=== PATIENT | female | born 1965 | race Caucasian/White ===

== ENCOUNTER 2016-11-02 03:48 | Emergency (ER) | payer OTHER ==
[~2016-11-02] VITALS: Ht 167.6 cm; Wt 86.2 kg
[~2016-11-02 03:48] MED LIST: EFFEXOR75 MG PO; IBUPROFEN800 MG PO; KEFLEX500 MG PO; MIRAPEX PO; ULTRAM50 MG PO; VICODIN 500 MG-1 TAB PO; VOLTAREN50 MG PO
[2016-11-02] MEDS ORDERED: EFFEXOR XR75 M1 PO (04:03)
[2016-11-02] MEDS ORDERED: ZOLPIDEM10 MG PO (04:04)
[2016-11-02] MEDS ORDERED: ROPINIROLE HYDRO2 M1 PO (04:04)
[2016-11-02 04:05] LABS: BASO # 0.1 10*3/uL (0.0-0.1); BASO % 0.5 % (0.0-1.0); EOS # 0.1 10*3/uL (0.0-0.4); EOS % 0.5 % (1.0-4.0); HEMATOCRIT 35.7 % (37.0-47.0); HEMOGLOBIN 11.3 g/dl (12.0-16.0); LYMPH # 3.5 10*3/uL (1.3-4.4); MEAN CELL VOLUME 84.8 fl (81.0-99.0); MEAN CORPUSCULAR HGB 26.8 pg (27.0-31.0); MEAN CORPUSCULAR HGB CONC 31.7 g/dl (33.0-37.0); MEAN PLATELET VOLUME 9.5 fl (9.6-12.3); MONO # 0.7 10*3/uL (0.1-1.0); MONO % 7.4 % (3.0-9.0); NEUT # 5.4 10*3/uL (2.3-7.9); NEUT % 55.3 % (47.0-73.0); PLATELET COUNT AUTOMATED 363 10*3/uL (130-400); RED BLOOD COUNT 4.21 10*6/uL (4.10-5.10); RED CELL DISTRI WIDTH 15.8 % (0-14.5); WHITE BLOOD COUNT 9.7 10*3/uL (4.8-10.8)
[2016-11-02] MEDS ORDERED: VITAMIN D22000 UNIT PO (04:05)
[2016-11-02] MEDS ORDERED: LAMISIL250 MG PO (04:05)
[2016-11-02 04:16] LABS: BILIRUBIN NEGATIVE (NEGATIVE); BLOOD 1+ (NEGATIVE); CLARITY CLEAR (CLEAR); COLOR YELLOW (YELLOW); GLUCOSE NEGATIVE (NEGATIVE); KETONE NEGATIVE (NEGATIVE); LEUKO ESTERASE NEGATIVE (NEGATIVE); NITRITE NEGATIVE (NEGATIVE); PROTEIN NEGATIVE (NEGATIVE); SPECIFIC GRAVITY <= 1.005 (1.005-1.030); UROBILINOGEN 0.2 E.U./dl (0.2-1.0)
[2016-11-02 04:25] LABS: BACTERIA TRACE; RBC 0-2 rbc/hpf (0-2); URINE AMPHETAMINES < 1000 (1000ng/ml); URINE BARBITURATES < 200 (200ng/ml); URINE COCAINE < 300 (300ng/ml); URINE REFLEX COMMENT YES (NO); WBC 0-2 wbc/hpf (0-5)
[2016-11-02 04:31] LABS: ALBUMIN 3.5 gm/dl (3.1-4.5); ALKALINE PHOSPHATASE 71 U/L (45-117); BILIRUBIN, TOTAL 0.5 mg/dl (0.2-1.0); BUN 9 mg/dl (7-24); CARBON DIOXIDE 24 mmol/L (21-32); CHLORIDE 105 mmol/L (98-107); EST GLOM FILT AFRICAN AMERICAN > 60 ml/min; GLUCOSE 136 mg/dL (65-99); POTASSIUM 3.7 mmol/L (3.5-5.1); SGOT/AST 19 IU/L (3-35); SGPT/ALT 20 U/L (12-78); SODIUM 142 mmol/L (136-145); TOTAL PROTEIN 7.2 gm/dL (6.4-8.2)
== END 2016-11-02 09:44 | disposition home or self-care (01) ==
LOC: ED 03:48
PROVIDERS: Emergency Medicine
DX: T42.6X1A Poisoning by other antiepileptic and sedative-hypnotic drugs, accidental (unintentional), initial encounter (principal); T43.211A Poisoning by selective serotonin and norepinephrine reuptake inhibitors, accidental (unintentional), initial encounter; Z88.1 Allergy status to other antibiotic agents; Z79.899 Other long term (current) drug therapy; Y92.9 Unspecified place or not applicable

== ENCOUNTER → 2016-11-07 | Outpatient (CLI) | payer OTHER ==
[~2016-11-07] MED LIST changes: +EFFEXOR XR75 M1 PO; +LAMISIL250 MG PO; +ROPINIROLE HYDRO2 M1 PO; +VITAMIN D22000 UNIT PO; +ZOLPIDEM10 MG PO
[2016-11-07 11:31] LABS: HEMATOCRIT 37.1 % (37.0-47.0); HEMOGLOBIN 11.9 g/dl (12.0-16.0); MEAN CELL VOLUME 85.7 fl (81.0-99.0); MEAN CORPUSCULAR HGB 27.5 pg (27.0-31.0); MEAN CORPUSCULAR HGB CONC 32.1 g/dl (33.0-37.0); MEAN PLATELET VOLUME 9.2 fl (9.6-12.3); RED BLOOD COUNT 4.33 10*6/uL (4.10-5.10); RED CELL DISTRI WIDTH 15.9 % (0-14.5); WHITE BLOOD COUNT 4.8 10*3/uL (4.8-10.8)
[2016-11-07 11:47] LABS: HEMOGLOBIN A1c 5.9 % (4.8-5.6)
[2016-11-07 12:02] LABS: ALBUMIN 3.6 gm/dl (3.1-4.5); ALKALINE PHOSPHATASE 66 U/L (45-117); BILIRUBIN, TOTAL 0.8 mg/dl (0.2-1.0); BUN 12 mg/dl (7-24); CARBON DIOXIDE 28 mmol/L (21-32); CHLORIDE 105 mmol/L (98-107); CHOLESTEROL 176 mg/dL (<200); EST GLOM FILT AFRICAN AMERICAN > 60 ml/min; GLUCOSE 100 mg/dL (65-99); HDL CHOLESTEROL 62 mg/dl (40-60); LDL CHOLESTEROL 100 mg/dL (9-159); POTASSIUM 4.3 mmol/L (3.5-5.1); SGOT/AST 17 IU/L (3-35); SGPT/ALT 16 U/L (12-78); SODIUM 140 mmol/L (136-145); TOTAL PROTEIN 7.1 gm/dL (6.4-8.2); TRIGLYCERIDES 68 mg/dl (<150); VLDL CHOLESTEROL 14 mg/dL (6-40)
== END | disposition home or self-care (01) ==
LOC: LAB 11:07
PROVIDERS: Family Medicine
DX: E55.9 Vitamin D deficiency, unspecified (principal); Z79.899 Other long term (current) drug therapy

== ENCOUNTER 2017-02-18 15:12 | Emergency (ER) | payer OTHER ==
[~2017-02-18] VITALS: Ht 172.7 cm; Wt 90.7 kg
== END 2017-02-18 21:40 | disposition short-term general hospital (02) ==
LOC: ED 15:12
DX: S93.334A Other dislocation of right foot, initial encounter (principal); Z88.1 Allergy status to other antibiotic agents; Z79.899 Other long term (current) drug therapy; W01.0XXA Fall on same level from slipping, tripping and stumbling without subsequent striking against object, initial encounter; Y93.89 Activity, other specified; Y92.89 Other specified places as the place of occurrence of the external cause; Y99.8 Other external cause status

== ENCOUNTER 2017-10-27 15:33 | Emergency (ER) | payer OTHER ==
[~2017-10-27] VITALS: Ht 172.7 cm; Wt 90.7 kg
[2017-10-27] MEDS ORDERED: CLINDAMYCIN HC300 MG PO (16:59)
== END 2017-10-27 17:13 | disposition home or self-care (01) ==
LOC: ED 15:33
DX: S51.811A Laceration without foreign body of right forearm, initial encounter (principal); Z88.1 Allergy status to other antibiotic agents; Z79.899 Other long term (current) drug therapy; W18.02XA Striking against glass with subsequent fall, initial encounter; Y93.89 Activity, other specified; Y92.828 Other wilderness area as the place of occurrence of the external cause; Y99.8 Other external cause status

== ENCOUNTER → 2019-01-06 | Outpatient (CLI) | payer OTHER ==
[~2019-01-06] MED LIST changes: +CLINDAMYCIN HC300 MG PO
== END | disposition home or self-care (01) ==
LOC: CT 15:00
DX: S92.901K Unspecified fracture of right foot, subsequent encounter for fracture with nonunion (principal); M19.071 Primary osteoarthritis, right ankle and foot; M24.674 Ankylosis, right foot; X58.XXXD Exposure to other specified factors, subsequent encounter

== ENCOUNTER → 2019-06-03 | Day surgery (SDC) | payer OTHER ==
[2019-06-02 09:26] VITALS: BP 113/98
[~2019-06-03] VITALS: Ht 172.7 cm; Wt 90.7 kg
[~2019-06-03] MED LIST changes: +DOXYCYCLINE100 M3 PO; +IBU800 M1 PO; +PRAMIPEXOLE DI0.5 MG PO; +XARELTO10 MG PO
[2019-06-03 08:15] VITALS: BP 117/43
[2019-06-03 09:29] VITALS: BP 118/57
[2019-06-03 09:45] VITALS: BP 116/57
[2019-06-03 09:57] VITALS: BP 112/57
[2019-06-03 10:30] VITALS: BP 119/60
[2019-06-04 15:09] LABS: ACID FAST SPEC PROCESSING Tissue Grinding (.)
== END | disposition home or self-care (01) ==
LOC: SDC 06-01 14:00
PROVIDERS: Podiatrist
DX: T84.84XA Pain due to internal orthopedic prosthetic devices, implants and grafts, initial encounter (principal); G25.81 Restless legs syndrome; F32.9 Major depressive disorder, single episode, unspecified; M51.36 Other intervertebral disc degeneration, lumbar region; L43.9 Lichen planus, unspecified; E66.9 Obesity, unspecified; Z68.30 Body mass index [BMI] 30.0-30.9, adult; Z87.891 Personal history of nicotine dependence; Y92.89 Other specified places as the place of occurrence of the external cause; Y83.8 Other surgical procedures as the cause of abnormal reaction of the patient, or of later complication, without mention of misadventure at the time of the procedure

== ENCOUNTER → 2019-06-29 | Outpatient (CLI) | payer OTHER | END | disposition home or self-care (01) | LOC: MAMMO 06-24 11:00 | DX: Z12.31 Encounter for screening mammogram for malignant neoplasm of breast (principal) ==

== ENCOUNTER → 2019-07-23 | Outpatient (CLI) | payer OTHER | END | disposition home or self-care (01) | LOC: MAMMO 07-22 13:30 | DX: R92.1 Mammographic calcification found on diagnostic imaging of breast (principal) ==

== ENCOUNTER 2020-10-21 21:21 | Emergency (ER) | payer OTHER ==
[~2020-10-21] VITALS: Ht 172.7 cm; Wt 90.7 kg
[2020-10-21] MEDS ORDERED: PREDNISONE10 MG PO (22:02)
[2020-10-21] MEDS ORDERED: CEPHALEXIN500 M1 PO (22:02)
== END 2020-10-21 22:18 | disposition home or self-care (01) ==
LOC: ED 21:21
DX: L23.9 Allergic contact dermatitis, unspecified cause (principal); Z88.1 Allergy status to other antibiotic agents; Z79.2 Long term (current) use of antibiotics; Z79.899 Other long term (current) drug therapy; Z96.642 Presence of left artificial hip joint; Z98.890 Other specified postprocedural states

== ENCOUNTER 2021-03-12 13:40 | Emergency (ER) | payer OTHER ==
[~2021-03-12] VITALS: Ht 172.7 cm; Wt 96.2 kg
[~2021-03-12 13:40] MED LIST changes: +CEPHALEXIN500 M1 PO; +PREDNISONE10 MG PO
[2021-03-12] MEDS ORDERED: PREDNISONE10 MG PO ×2 (14:20)
[2021-03-12] MEDS ORDERED: CEPHALEXIN500 M1 PO ×2 (14:20)
[2021-03-12] MEDS ORDERED: HYDROXYZINE HCL25 MG PO ×2 (14:20)
[2021-03-22] MEDS ORDERED: TRAMADOL HCL50 MG PO (12:28)
[2021-03-22] MEDS ORDERED: XARELTO10 MG PO (12:28)
[2021-03-22] MEDS ORDERED: VIBRA-TAB100 MG PO (12:28)
== END 2021-03-12 14:29 | disposition home or self-care (01) ==
LOC: ED 13:40
DX: R21 Rash and other nonspecific skin eruption (principal); Z88.1 Allergy status to other antibiotic agents; Z79.899 Other long term (current) drug therapy

== ENCOUNTER → 2021-03-22 | Day surgery (SDC) | payer OTHER ==
[2021-03-17 13:54] VITALS: BP 133/70
[2021-03-17 14:35] LABS: BASO # 0.1 10*3/uL (0.0-0.1); BASO % 0.9 % (0.0-1.0); EOS % 0.2 % (1.0-4.0); HEMATOCRIT 39.6 % (37.0-47.0); LYMPH # 1.4 10*3/uL (1.3-4.4); LYMPH % 24.7 % (27.0-41.0); MEAN CELL VOLUME 92.7 fl (81.0-99.0); MEAN CORPUSCULAR HGB 28.6 pg (27.0-31.0); MEAN CORPUSCULAR HGB CONC 30.8 g/dl (33.0-37.0); MEAN PLATELET VOLUME 8.8 fl (9.6-12.3); MONO # 0.1 10*3/uL (0.1-1.0); MONO % 1.4 % (3.0-9.0); NEUT # 4.2 10*3/uL (2.3-7.9); NEUT % 71.9 % (47.0-73.0); PLATELET COUNT AUTOMATED 422 10*3/uL (130-400); RED BLOOD COUNT 4.27 10*6/uL (4.10-5.10); RED CELL DISTRI WIDTH 14.5 % (0-14.5); WHITE BLOOD COUNT 5.8 10*3/uL (4.8-10.8)
[2021-03-17 14:48] LABS: BUN 17 mg/dl (7-24); CHLORIDE 108 mmol/L (98-107); CREATININE 1.02 mg/dL (0.55-1.02); POTASSIUM 4.1 mmol/L (3.5-5.1); SODIUM 143 mmol/L (136-145)
[2021-03-22] VITALS (8 sets, daily range): BP systolic 120–180; BP diastolic 52–79
[~2021-03-22] VITALS: Ht 172.7 cm; Wt 97.5 kg
[~2021-03-22] MED LIST changes: +HYDROXYZINE HCL25 MG PO; +TRAMADOL HCL50 MG PO; +VIBRA-TAB100 MG PO
== END | disposition home or self-care (01) ==
LOC: SDC 03-17 14:00
PROVIDERS: ATTEND Podiatrist
DX: M21.6X1 Other acquired deformities of right foot (principal); M79.671 Pain in right foot; M19.071 Primary osteoarthritis, right ankle and foot; F32.9 Major depressive disorder, single episode, unspecified; F41.9 Anxiety disorder, unspecified; G47.00 Insomnia, unspecified; Z79.899 Other long term (current) drug therapy; Z20.822 Contact with and (suspected) exposure to COVID-19

== ENCOUNTER 2022-09-03 17:33 | Emergency (ER) | payer OTHER ==
[~2022-09-03] VITALS: Ht 172.7 cm; Wt 95.3 kg
[2022-09-03 18:26] LABS: BASO # 0.1 10*3/uL (0.0-0.1); BASO % 0.4 % (0.0-1.0); EOS % 0.2 % (1.0-4.0); HEMATOCRIT 41.3 % (37.0-47.0); LYMPH # 1.7 10*3/uL (1.3-4.4); LYMPH % 14.2 % (27.0-41.0); MEAN CELL VOLUME 90.6 fl (81.0-99.0); MEAN CORPUSCULAR HGB 28.7 pg (27.0-31.0); MEAN CORPUSCULAR HGB CONC 31.7 g/dl (33.0-37.0); MEAN PLATELET VOLUME 8.9 fl (9.6-12.3); MONO # 0.6 10*3/uL (0.1-1.0); MONO % 4.9 % (3.0-9.0); NEUT # 9.7 10*3/uL (2.3-7.9); NEUT % 79.9 % (47.0-73.0); PLATELET COUNT AUTOMATED 340 10*3/uL (130-400); RED BLOOD COUNT 4.56 10*6/uL (4.10-5.10); RED CELL DISTRI WIDTH 13.3 % (0-14.5); WHITE BLOOD COUNT 12.2 10*3/uL (4.8-10.8)
[2022-09-03 18:43] LABS: POTASSIUM 4.2 mmol/L (3.4-5.1); TOTAL PROTEIN 7.5 gm/dL (6.0-8.0)
[2022-09-03 20:18] LABS: BILIRUBIN Negative (Negative); BLOOD 2+ (Negative); CLARITY Cloudy (Clear); COLOR Yellow (Yellow); GLUCOSE Negative (Negative); KETONE 1+ (Negative); LEUKO ESTERASE 2+ (Negative); NITRITE Negative (Negative); PH 6.5 (4.5-8.0); SPECIFIC GRAVITY 1.025 (1.001-1.030); UROBILINOGEN 0.2 E.U./dl (0.0-1.0)
[2022-09-03 20:34] LABS: BACTERIA 1+; WBC 51-100 wbc/hpf (0-5)
== END 2022-09-03 21:06 | disposition short-term general hospital (02) ==
LOC: ED 17:33
PROVIDERS: Emergency Medicine
DX: N13.2 Hydronephrosis with renal and ureteral calculous obstruction (principal); N13.4 Hydroureter; N18.31 Chronic kidney disease, stage 3a; F32.A Depression, unspecified; F41.9 Anxiety disorder, unspecified; Z88.1 Allergy status to other antibiotic agents; Z98.890 Other specified postprocedural states

== ENCOUNTER → 2022-09-12 | Outpatient (CLI) | payer OTHER ==
[2022-09-12 12:10] LABS: BILIRUBIN Negative (Negative); BLOOD 2+ (Negative); CLARITY Clear (Clear); COLOR Yellow (Yellow); GLUCOSE Negative (Negative); KETONE Negative (Negative); LEUKO ESTERASE 2+ (Negative); NITRITE Negative (Negative); PH 6.5 (4.5-8.0); SPECIFIC GRAVITY 1.015 (1.001-1.030); UROBILINOGEN 0.2 E.U./dl (0.0-1.0)
[2022-09-12 12:31] LABS: MUCOUS 1+; RBC 41-50 rbc/hpf (0-2); WBC 21-30 wbc/hpf (0-5)
== END | disposition home or self-care (01) ==
LOC: LAB 11:43
PROVIDERS: ATTEND Urology
DX: A41.9 Sepsis, unspecified organism (principal); N20.0 Calculus of kidney; N39.0 Urinary tract infection, site not specified

== ENCOUNTER → 2022-09-25 | Outpatient (CLI) | payer OTHER | END | disposition home or self-care (01) | LOC: RAD 13:15 | PROVIDERS: ATTEND Urology | DX: N20.0 Calculus of kidney (principal) ==

== ENCOUNTER → 2022-12-03 | Outpatient (CLI) | payer OTHER | END | disposition home or self-care (01) | LOC: WOUNDCARE 01:18 | PROVIDERS: ATTEND Nurse Practitioner Primary Care | DX: T81.89XA Other complications of procedures, not elsewhere classified, initial encounter (principal); S71.002A Unspecified open wound, left hip, initial encounter; M97.8XXD Periprosthetic fracture around other internal prosthetic joint, subsequent encounter; M16.12 Unilateral primary osteoarthritis, left hip; Z96.649 Presence of unspecified artificial hip joint; X58.XXXA Exposure to other specified factors, initial encounter; Y93.89 Activity, other specified; Y92.89 Other specified places as the place of occurrence of the external cause; Y99.8 Other external cause status; X58.XXXD Exposure to other specified factors, subsequent encounter; Y92.238 Other place in hospital as the place of occurrence of the external cause; Y83.8 Other surgical procedures as the cause of abnormal reaction of the patient, or of later complication, without mention of misadventure at the time of the procedure ==

== ENCOUNTER → 2022-12-10 | Outpatient (CLI) | payer OTHER | END | disposition home or self-care (01) | LOC: WOUNDCARE 01:58 | PROVIDERS: ATTEND Nurse Practitioner Family | DX: T81.89XD Other complications of procedures, not elsewhere classified, subsequent encounter (principal); L98.492 Non-pressure chronic ulcer of skin of other sites with fat layer exposed; S71.002D Unspecified open wound, left hip, subsequent encounter; M16.12 Unilateral primary osteoarthritis, left hip; Z96.642 Presence of left artificial hip joint; X58.XXXD Exposure to other specified factors, subsequent encounter; Y83.8 Other surgical procedures as the cause of abnormal reaction of the patient, or of later complication, without mention of misadventure at the time of the procedure ==

== ENCOUNTER → 2022-12-17 | Outpatient (CLI) | payer OTHER | END | disposition home or self-care (01) | LOC: WOUNDCARE 02:04 | PROVIDERS: ATTEND Nurse Practitioner Primary Care | DX: T81.89XD Other complications of procedures, not elsewhere classified, subsequent encounter (principal); S71.002D Unspecified open wound, left hip, subsequent encounter; L98.492 Non-pressure chronic ulcer of skin of other sites with fat layer exposed; M97.8XXD Periprosthetic fracture around other internal prosthetic joint, subsequent encounter; Z96.649 Presence of unspecified artificial hip joint; M16.12 Unilateral primary osteoarthritis, left hip; X58.XXXD Exposure to other specified factors, subsequent encounter; Y83.8 Other surgical procedures as the cause of abnormal reaction of the patient, or of later complication, without mention of misadventure at the time of the procedure ==

== ENCOUNTER → 2023-05-16 | Outpatient (CLI) | payer OTHER ==
[2023-05-16 12:32] LABS: URINE AMPHETAMINES Negative (1000ng/ml); URINE BARBITURATES Negative (200ng/ml); URINE BENZODIAZEPINES Negative (200ng/ml); URINE CANNABINOIDS (THC) Negative (50ng/ml); URINE COCAINE Negative (300ng/ml); URINE METHADONE Negative (300ng/ml); URINE OPIATES Negative (300ng/ml); URINE PHENCYCLIDINE Negative (25ng/ml)
== END | disposition home or self-care (01) ==
LOC: LAB 11:54
PROVIDERS: ATTEND Nurse Practitioner Family
DX: Z51.81 Encounter for therapeutic drug level monitoring (principal); F33.1 Major depressive disorder, recurrent, moderate

== ENCOUNTER → 2023-09-13 | Outpatient (CLI) | payer OTHER ==
[2023-09-13 08:38] LABS: BASO % 0.7 % (0.0-1.0); EOS # 0.2 10*3/uL (0.0-0.4); EOS % 3.7 % (1.0-4.0); HEMATOCRIT 39.9 % (37.0-47.0); LYMPH # 2.7 10*3/uL (1.3-4.4); LYMPH % 50.2 % (27.0-41.0); MEAN CELL VOLUME 92.1 fl (81.0-99.0); MEAN CORPUSCULAR HGB 28.6 pg (27.0-31.0); MEAN CORPUSCULAR HGB CONC 31.1 g/dl (33.0-37.0); MEAN PLATELET VOLUME 8.4 fl (9.6-12.3); MONO # 0.4 10*3/uL (0.1-1.0); MONO % 6.9 % (3.0-9.0); NEUT # 2.1 10*3/uL (2.3-7.9); NEUT % 38.1 % (47.0-73.0); PLATELET COUNT AUTOMATED 323 10*3/uL (130-400); RED BLOOD COUNT 4.33 10*6/uL (4.10-5.10); RED CELL DISTRI WIDTH 14.3 % (0-14.5); WHITE BLOOD COUNT 5.4 10*3/uL (4.8-10.8)
[2023-09-13 08:39] LABS: BILIRUBIN Negative (Negative); BLOOD Negative (Negative); CLARITY Clear (Clear); COLOR Yellow (Yellow); GLUCOSE Negative (Negative); KETONE Trace (Negative); LEUKO ESTERASE 1+ (Negative); NITRITE Negative (Negative); PH 5.5 (4.5-8.0)
[2023-09-13 08:50] LABS: ALKALINE PHOSPHATASE 80 U/L (46-116); BUN 11 mg/dl (9-23); CHLORIDE 107 mmol/L (98-107); CHOLESTEROL 207 mg/dL (<200); LDL CHOLESTEROL 120 mg/dL (9-159); POTASSIUM 4.2 mmol/L (3.4-5.1); SGPT/ALT 20 U/L (5-49); TRIGLYCERIDES 76 mg/dl (<150)
[2023-09-13 09:19] LABS: VITAMIN D, 25-HYDROXY 32.8 ng/mL (30-100)
[2023-09-13 10:10] LABS: BACTERIA TRACE
[2023-09-14 12:07] LABS: CCP ANTIBODIES IGG/IGA 4 units (0-19)
[2023-09-16 13:06] LABS: ANTI-DSDNA ANTIBODIES 2 IU/mL (0-9); ANTI-RNP ANTIBODIES <0.2 AI (0.0-0.9); ANTICHROMATIN ANTIBODIES <0.2 AI (0.0-0.9); ANTISCLERODERMA-70 AB <0.2 AI (0.0-0.9); SJOGREN ANTI-SS-A <0.2 AI (0.0-0.9); SJOREN AB, ANTI-SS-B <0.2 AI (0.0-0.9)
== END | disposition home or self-care (01) ==
LOC: LAB 08:14
PROVIDERS: ATTEND Nurse Practitioner Family
DX: D50.9 Iron deficiency anemia, unspecified (principal); R21 Rash and other nonspecific skin eruption; F33.1 Major depressive disorder, recurrent, moderate; M19.90 Unspecified osteoarthritis, unspecified site

== ENCOUNTER → 2023-09-19 | Outpatient (CLI) | payer OTHER | END | disposition home or self-care (01) | LOC: WOUNDCARE 01:01 | PROVIDERS: ATTEND Nurse Practitioner Family | DX: R21 Rash and other nonspecific skin eruption (principal); L20.9 Atopic dermatitis, unspecified; L53.9 Erythematous condition, unspecified; L29.9 Pruritus, unspecified; R60.9 Edema, unspecified; R20.8 Other disturbances of skin sensation; I10 Essential (primary) hypertension; G25.81 Restless legs syndrome; M19.90 Unspecified osteoarthritis, unspecified site; F32.A Depression, unspecified; Z96.642 Presence of left artificial hip joint ==

== ENCOUNTER → 2023-09-26 | Outpatient (CLI) | payer OTHER | END | disposition home or self-care (01) | LOC: WOUNDCARE 01:02 | PROVIDERS: ATTEND Nurse Practitioner Family | DX: R21 Rash and other nonspecific skin eruption (principal); I10 Essential (primary) hypertension; L20.9 Atopic dermatitis, unspecified; E55.9 Vitamin D deficiency, unspecified; G25.81 Restless legs syndrome; L53.9 Erythematous condition, unspecified; M16.12 Unilateral primary osteoarthritis, left hip; L29.9 Pruritus, unspecified; R60.9 Edema, unspecified; R20.8 Other disturbances of skin sensation; F32.A Depression, unspecified; Z96.642 Presence of left artificial hip joint; Z79.899 Other long term (current) drug therapy ==

== ENCOUNTER → 2023-10-28 | Outpatient (CLI) | payer OTHER | END | disposition home or self-care (01) | LOC: WOUNDCARE 01:27 | PROVIDERS: ATTEND Nurse Practitioner Family | DX: R21 Rash and other nonspecific skin eruption (principal); I10 Essential (primary) hypertension; L20.9 Atopic dermatitis, unspecified; E55.9 Vitamin D deficiency, unspecified; G25.81 Restless legs syndrome; L53.9 Erythematous condition, unspecified; M16.12 Unilateral primary osteoarthritis, left hip; L29.9 Pruritus, unspecified; R60.9 Edema, unspecified; R20.8 Other disturbances of skin sensation; F32.A Depression, unspecified; Z96.642 Presence of left artificial hip joint; Z79.899 Other long term (current) drug therapy ==

== ENCOUNTER → 2024-03-13 | Outpatient (CLI) | payer OTHER | END | disposition home or self-care (01) | LOC: RAD 09:36 | PROVIDERS: ATTEND Nurse Practitioner Family | DX: Z13.820 Encounter for screening for osteoporosis (principal); Z78.0 Asymptomatic menopausal state ==

== ENCOUNTER 2024-09-28 15:04 | Emergency (ER) | payer OTHER ==
[~2024-09-28] VITALS: Ht 172.7 cm; Wt 95.3 kg
[2024-09-28] MEDS ORDERED: SODIUM CHLORIDE 0.9% 1,000 ML IV ONE (15:15)
[2024-09-28] MEDS ORDERED: MORPHINE Sulfate 2 MG/ML SYR IV ONE (15:15)
[2024-09-28] MEDS ORDERED: Ondansetron Hydrochloride 4 MG/2 ML VIAL IV ONE (15:15)
[2024-09-28] MEDS ORDERED: FAMOTIDINE 50 ML IV ONE (15:20)
[2024-09-28 15:41] LABS: BASO % 0.2 % (0.0-1.0); EOS # 0.1 10*3/uL (0.0-0.4); EOS % 1.2 % (1.0-4.0); HEMATOCRIT 45.9 % (37.0-47.0); MEAN CELL VOLUME 90.7 fl (81.0-99.0); MEAN CORPUSCULAR HGB 29.4 pg (27.0-31.0); MEAN CORPUSCULAR HGB CONC 32.5 g/dl (33.0-37.0); MEAN PLATELET VOLUME 8.7 fl (9.6-12.3); MONO # 0.5 10*3/uL (0.1-1.0); MONO % 5.3 % (3.0-9.0); NEUT # 5.2 10*3/uL (2.3-7.9); NEUT % 60.6 % (47.0-73.0); PLATELET COUNT AUTOMATED 348 10*3/uL (130-400); RED BLOOD COUNT 5.06 10*6/uL (4.10-5.10); RED CELL DISTRI WIDTH 13.6 % (0-14.5); WHITE BLOOD COUNT 8.5 10*3/uL (4.8-10.8)
[2024-09-28 16:03] LABS: ALKALINE PHOSPHATASE 84 U/L (46-116); BUN 9 mg/dl (9-23); CHLORIDE 100 mmol/L (98-107); LIPASE 26 U/L (12-53); POTASSIUM 3.9 mmol/L (3.4-5.1); SGPT/ALT 19 U/L (5-49); TOTAL PROTEIN 7.3 gm/dL (6.0-8.0)
[2024-09-28] MEDS ORDERED: cefTRIAXone Sodium 1 GM/10 ML SYR IV ONE (16:50)
[2024-09-28] MEDS ORDERED: metroNIDAZOLE 500 MG TAB PO ONE (16:50)
[2024-09-28] MEDS ORDERED: METRONIDAZOLE500 M1 PO (16:54)
[2024-09-28] MEDS ORDERED: CIPRO500 MG PO (16:54)
[2024-09-28] MEDS ORDERED: DICYCLOMINE HYD20 MG PO (16:54)
== END 2024-09-28 17:32 | disposition home or self-care (01) ==
LOC: ED 15:04
PROVIDERS: Emergency Medicine
DX: K52.9 Noninfective gastroenteritis and colitis, unspecified (principal); R10.13 Epigastric pain; R11.2 Nausea with vomiting, unspecified; I12.9 Hypertensive chronic kidney disease with stage 1 through stage 4 chronic kidney disease, or unspecified chronic kidney disease; N18.9 Chronic kidney disease, unspecified; Z88.1 Allergy status to other antibiotic agents; Z79.899 Other long term (current) drug therapy; Z96.642 Presence of left artificial hip joint; Z98.890 Other specified postprocedural states

== ENCOUNTER → 2024-11-23 | Outpatient (CLI) | payer OTHER ==
[~2024-11-23] MED LIST changes: +CIPRO500 MG PO; +DICYCLOMINE HYD20 MG PO; +METRONIDAZOLE500 M1 PO
== END | disposition home or self-care (01) ==
LOC: CT 08:22
PROVIDERS: ATTEND Podiatrist
DX: S92.901D Unspecified fracture of right foot, subsequent encounter for fracture with routine healing (principal); M19.071 Primary osteoarthritis, right ankle and foot; X58.XXXD Exposure to other specified factors, subsequent encounter

== ENCOUNTER → 2025-01-25 | Outpatient (CLI) | payer OTHER ==
[2025-01-25 11:08] LABS: BASO # 0.1 10*3/uL (0.0-0.1); BASO % 0.8 % (0.0-1.0); EOS # 0.1 10*3/uL (0.0-0.4); EOS % 1.8 % (1.0-4.0); MEAN CELL VOLUME 90.1 fl (81.0-99.0); MEAN CORPUSCULAR HGB 28.9 pg (27.0-31.0); MEAN PLATELET VOLUME 8.8 fl (9.6-12.3); MONO # 0.4 10*3/uL (0.1-1.0); MONO % 6.5 % (3.0-9.0); NEUT # 2.6 10*3/uL (2.3-7.9); NEUT % 43.5 % (47.0-73.0); NUCLEATED RED BLOOD CELL 0.0 % (0.0-0.0); NUCLEATED RED BLOOD CELL 0.0 10*3/uL (0.0-0.0); PLATELET COUNT AUTOMATED 340 10*3/uL (130-400); RED CELL DISTRI WIDTH 13.4 % (0-14.5)
[2025-01-25 11:36] LABS: BUN 14 mg/dl (9-23); SGPT/ALT 31 U/L (5-49)
== END ==
LOC: LAB 10:11
PROVIDERS: ATTEND Family Medicine
DX: Z01.818 Encounter for other preprocedural examination (principal)